=== PATIENT | female | born 1960 | race Caucasian/White ===

== ENCOUNTER 2017-04-29 13:55 | Emergency (ER) | payer OTHER ==
[2017-04-29 14:02] VITALS: BMI 28.9
[2017-04-29 14:08] VITALS: RESP 18
[2017-04-29] MEDS ORDERED: DiphenhydrAMINE 50 mg/ml Inj IVP STA (14:43)
[2017-04-29] MEDS ORDERED: Sodium Chloride 0.9% 1,000 ML IV ONE (14:43)
--- NOTE | 2017-04-29 14:43 | C.PDOC ---
History Of Present Illness <Margaux Readсергей Ingram - Last Filed: 04/29/17 15:48> <Lawson Mathews - Last Filed: 04/29/17 17:37> Patient is a 56 year old with past medical history of migraine who was sent to the ED from [facility] due to complaints of diffused headache that is more localized to the occipital region and radiation to her neck and right deltoid muscle and arm. Patient reports that her symptoms have been ongoing for the past 6 days. Patient denies nausea, vomiting, fever, chills, chest pain, palpitations, SOB, abdominal pain or numbness and tingling. Patient admits to neck discomfort, right should tenderness and right eye redness. Patient was diagnosed with acute Otitis media on 04/26/17 and prescribed amoxicillin 875mg PO BID and was also prescribed Ibuprofen for headache. (Michaela Read) History Per: Patient History/Exam Limitations: no limitations Onset/Duration Of Symptoms: Days Current Symptoms Are (Timing): Still Present Severity: Moderate Pain Scale Rating Of: 7 Location: Diffuse headache, more localized to the occipital region Quality: Throbbing Reports Recently: Treated By A Physician Recent travel outside of the [facility]: No Additional History Per: Patient <Margaux Readyesirickie Juan Jose - Last Filed: 04/29/17 15:48> <Lawson Mathews - Last Filed: 04/29/17 17:37> Time Seen by Provider: 04/29/17 14:16 Chief Complaint (Nursing): Headache Past Medical History - Medical History PMH: Migraine Surgical History: Cholecystectomy Other Surgeries: Hysterectomy, hernia and vaginal plastic Family History: States: Unknown Family Hx - Social History Hx Tobacco Use: No Hx Alcohol Use: No Hx Substance Use: No - Immunization History Hx Tetanus Toxoid Vaccination: No Hx Influenza Vaccination: No <TooneMichaela - Last Filed: 04/29/17 15:48> Vital Signs: Last Vital Signs Temp 97.8 F 04/29/17 16:09 Pulse 62 04/29/17 16:09 Resp 18 04/29/17 16:09 BP 105/69 04/29/17 16:09 Pulse Ox 100 04/29/17 16:09 Review Of Systems Constitutional: Negative for: Fever, Chills, Weakness, Malaise (+) Eyes: Positive for: Redness (Right eye redness ) ENT: Negative for: Ear Pain Cardiovascular: Negative for: Chest Pain, Palpitations, Edema, Light Headedness Respiratory: Negative for: Shortness of Breath, SOB with Excertion, Wheezing Gastrointestinal: Negative for: Nausea, Vomiting, Abdominal Pain, Diarrhea, Constipation Musculoskeletal: Positive for: Neck Pain, Shoulder Pain Skin: Negative for: Rash Neurological: Positive for: Headache. Negative for: Weakness, Numbness, Confusion, Altered Mental Status, Dizziness <Michaela Read E - Last Filed: 04/29/17 15:48> Physical Exam - Physical Exam Appears: No Acute Distress Skin: Normal Color Head: Atraumatic, Normacephalic, No Tenderness Eye(s): bilateral: Normal Inspection, EOMI Oral Mucosa: Dry, No Drooling Lips: Other (Right bottom lip lesion ) Teeth: Normal Dentition Throat: Normal, No Erythema, No Exudate, No Drooling Neck: Decreased ROM Cardiovascular: Rhythm Regular, No Murmur Respiratory: Normal Breath Sounds, No Decreased Breath Sounds, No Accessory Muscle Use, No Rales Gastrointestinal/Abdominal: Normal Exam, Bowel Sounds, Soft, No Tenderness, No Organomegaly, No Mass, No Distention, No Guarding Extremity: Normal ROM, No Tenderness, No Pedal Edema, No Calf Tenderness Extremity: Bilateral: Atraumatic Pulses: Left Dorsalis Pedis: Normal, Right Dorsalis Pedis: Normal Neurological/Psych: Oriented x3, Normal Speech, Normal Cranial Nerves, Normal Motor, Normal Sensation Extremity: Right: No Drift, Left: No Drift, Upper: No Drift, Lower: No Drift <Michaela Read - Last Filed: 04/29/17 15:48> ED Course And Treatment - Laboratory Results Result Diagrams: 04/29/17 14:48 04/29/17 14:48 Lab Interpretation: Normal O2 Sat by Pulse Oximetry: 98 Progress Note: Patient reports improved symptoms of headache after Tylenol 325mg PO and Reglan 10mg IV. Reevaluation Time: 15:53 Reassessment Condition: Improved <Michaela Read E - Last Filed: 04/29/17 15:48> - Laboratory Results Result Diagrams: 04/29/17 14:48 04/29/17 14:48 <Lawson Mathews - Last Filed: 04/29/17 17:37> Medical Decision Making <Michaela Read E - Last Filed: 04/29/17 15:48> <Lawson Mathews - Last Filed: 04/29/17 17:37> Medical Decision Making: CT head without contrast: Normal CT of the Head. No intracranial mass, hemorrhage or evidence of acute infarct. (Nguyen Readrickie Ingram) 56 yo female, hx of migraine, presents with johnson x 1 week. see recently with similar. s/p meds, johnson resolved. pt states feels well to gohome. no thunderclap features, neuro intact, neck supple no mastoid ttp. labs head ct neg. (Lawson Mathews) Disposition Discussed With : Lawson Mathews - Disposition Disposition Time: 15:58 <Nguyen Readrickie E - Last Filed: 04/29/17 15:48> <Lawson Mathews - Last Filed: 04/29/17 17:37> - Disposition Referrals: [facility] [Outside] Gino Rodriguez MD [Staff Provider] - Reg Bull MD [Staff Provider] - Disposition: HOME/ ROUTINE Condition: GOOD Additional Instructions: Please discharge patient home Please continue amoxicillin and ibuprofen as prescribed by your primary care physician at [place]. Please continue to take with food. Please follow up with your primary care physician at [place] within a week Please obtain a Neurologist referral from your primary care physician at [place] for evaluation recurrent headache Please return to the ED if symptoms worsens in 2 days Instructions: Migraine Headache (DC) Forms: [facility] (Bengali), General Discharge Instructions Print Language: MALAGASY - Clinical Impression Clinical Impression: Headache, Migraine
[2017-04-29] MEDS ORDERED: DiphenhydrAMINE 50 mg/ml Inj ONE (14:50)
[2017-04-29] MEDS ORDERED: Sodium Chloride 0.9% 1,000 ML ONE (14:51)
[2017-04-29 14:52] LABS: BASO # 0.1 K/uL (0.0-0.2); BASO % 0.7 % (0.0-2.0); EOS # 0.1 K/uL (0.0-0.7); EOS % 1.4 % (0.0-4.0); HEMOGLOBIN 13.2 g/dL (11.0-16.0); LYMPH # 2.5 K/uL (1.0-4.3); LYMPH % 33.1 % (20.0-40.0); MEAN CELL VOLUME 87.7 fL (81.0-99.0); MEAN CORPUSCULAR HGB CONC 33.1 g/dL (33.0-37.0); MEAN PLATELET VOLUME 9.2 fL (7.2-11.7); MONO # 0.6 K/uL (0.0-0.8); MONO % 8.3 % (0.0-10.0); NEUT # 4.2 K/uL (1.8-7.0); NEUT % 56.5 % (50.0-75.0); NRBC % 0.1 % (0.0-2.0); RBC 4.54 Mil/uL (3.80-5.20); RED CELL DISTRIBUTION WIDTH 13.4 % (11.5-14.5); WHITE BLOOD COUNT 7.5 K/uL (4.8-10.8)
[2017-04-29 14:59] LABS: INR 1.1; PROTHROMBIN TIME 11.8 SECONDS (9.7-12.2)
[2017-04-29 15:06] LABS: ALB/GLOB RATIO 1.2 (1.0-2.1); ALBUMIN 4.5 g/dL (3.5-5.0); ALT/SGPT 27 U/L (9-52); AST/SGOT 36 U/L (14-36); BLOOD UREA NITROGEN 14 mg/dL (7-17); CALCIUM 9.4 mg/dl (8.6-10.4); GFR AFRICAN-AMERICAN > 60; GFR NON-AFRICAN AMERICAN > 60
[2017-04-29 15:25] LABS: HCG,QUALITATIVE URINE NEGATIVE (NEGATIVE)
[2017-04-29 15:26] LABS: SQUAMOUS EPITHIAL 2 /hpf (0-5); URINE BILIRUBIN NEGATIVE (NEGATIVE); URINE BLOOD 2+ (NEGATIVE); URINE CLARITY Clear (Clear); URINE COLOR Yellow (YELLOW); URINE GLUCOSE (UA) NORMAL (Normal); URINE LEUKOCYTE ESTERASE NEG Leu/uL (Negative); URINE PROTEIN NEGATIVE (NEGATIVE); URINE UROBILINOGEN NORMAL mg/dL (0.2-1.0)
--- NOTE | 2017-04-29 15:28 | CT ---
PROCEDURE: CT HEAD WITHOUT CONTRAST. HISTORY: R/O Bleed COMPARISON: None available. TECHNIQUE: Axial computed tomography images were obtained through the head/brain without intravenous contrast. Radiation dose: Total exam DLP = 747.02 mGy-cm. This CT exam was performed using one or more of the following dose reduction techniques: Automated exposure control, adjustment of the mA and/or kV according to patient size, and/or use of iterative reconstruction technique. FINDINGS: HEMORRHAGE: No intracranial hemorrhage. BRAIN: No mass effect or edema. No atrophy or chronic microvascular ischemic changes. VENTRICLES: Unremarkable. No hydrocephalus. CALVARIUM: Unremarkable. PARANASAL SINUSES: Unremarkable as visualized. No significant inflammatory changes. MASTOID AIR CELLS: Unremarkable as visualized. No inflammatory changes. OTHER FINDINGS: None. IMPRESSION: Normal CT of the Head. No intracranial mass, hemorrhage or evidence of acute infarct.
[2017-04-29 16:11] VITALS: BP 105/69; PULSE 62; TEMP 97.8; O2SAT 100
== END 2017-04-29 16:11 | disposition home or self-care (01) ==
LOC: C.ER 13:55
DX: G43.909 Migraine, unspecified, not intractable, without status migrainosus (principal)
CPT/HCPCS: 70450; 80053; 81001; 84703; 85025; 85610; 85730; 96361; 96374; 96375; 99285; J1200; J2765; J7040